=== PATIENT | female | born 1955 | race Caucasian/White ===

== ENCOUNTER 2020-03-21 18:45 | Emergency (ER) | payer MEDICARE, SELFPAY ==
--- NOTE | 2020-03-21 19:10 | PC.NURSE ---
in br to obtain ua spec.
[2020-03-21 19:14] VITALS: BP 142/83; PULSE 73; RESP 16; TEMP 36.9; O2SAT 99
--- NOTE | 2020-03-21 19:32 | ED.GENADULT ---
HPI - General Adult General Chief complaint: Abdominal Pain Stated complaint: left side pain Time Seen by Provider: 03/21/20 19:33 Source: patient and RN notes reviewed Mode of arrival: ambulatory Limitations: no limitations History of Present Illness HPI narrative: 64-year-old female presents with concern for acute left flank pain. Reports pain ranges from mild to an 8/10. Reports symptoms started this morning. She denies dysuria, frequency, urgency, hematuria. Reports mild nausea, decreased appetite. Denies abdominal pain, vomiting, diarrhea. Denies fever, body aches, chills, sweats. complaint: Flank pain Related Data Home Medications Medication Instructions Recorded Confirmed atenolol 03/21/20 levothyroxine 03/21/20 loperamide 03/21/20 lorazepam 03/21/20 ondansetron 03/21/20 trazodone 03/21/20 Allergies Allergy/AdvReac Type Severity Reaction Status Date / Time Cephalosporins Allergy Mild Rash Unverified 08/15/16 18:47 Sulfa (Sulfonamide Allergy Unknown Verified 02/12/19 12:26 Antibiotics) sulfanilamide Allergy Unknown Verified 10/09/12 15:04 Review of Systems Review of Systems: Narrative: CONSTITUTIONAL: Denies malaise, chills, sweats, or fever. CARDIOVASCULAR: Denies chest pain, palpitations RESPIRATORY: Denies cough or dyspnea. GASTROINTESTINAL: Denies abdominal pain, vomiting, diarrhea, bloody, or mucous stools.. Reports slight nausea, decreased appetite GENITOURINARY: Denies dysuria frequency, urgency, or hematuria. Reports left flank pain MUSCULOSKELETAL: Denies myalgia. All systems reviewed & are unremarkable except as noted in HPI and below PMFSH Family History Family History (Updated 02/12/19 @ 12:29 by DOCTOR UNKNOWN) Other Diabetes mellitus Family history of alcoholism Family history of cardiovascular disease Family history of osteoporosis Family history of thyroid disease Hypertension Social History Social History Smoking status: Never smoker Alcohol intake: current Comments At time of signature, agree with nursing past medical, surgical, social and family history. There is no relevant family history pertinent to the presenting complaint Exam Narrative: Exam Narrative: GENERAL: Well-appearing, well-nourished, and in no acute distress. HEAD: Normocephalic. EYES: PERRLA, conjunctivae clear. NECK: Supple. No lymphadenopathy CHEST: Clear to auscultation. No respiratory distress. HEART: Regular rate and rhythm. No murmur heard. Normal peripheral pulses. ABDOMEN: Soft, nontender upon palpation, nondistended, normal active bowel sounds, no palpable or pulsatile masses, no guarding. Left CVA tenderness SKIN: Warm, dry, no rash. NEURO: Alert and oriented x3. PSYCH: Normal mood and affect Course Course Emergency Course: Test with patient possible bacteria in urine, discussed with patient limited diagnostic capability at [facility] to diagnose kidney stone. Patient reports a history of kidney stones, and is worried she may have 1, patient asks to be transferred to the emergency room for further evaluation. Patient is aware of, understands and agrees to be transferred to emergency department. Patient agrees to proceed directly to the emergency department. Portions of this record may have been created with voice recognition software Vital Signs Vital signs: Vital Signs Temperature 98.5 F 03/21/20 19:14 Pulse Rate 73 03/21/20 19:14 Respiratory Rate 16 03/21/20 19:14 Blood Pressure 142/83 H 03/21/20 19:14 Pulse Oximetry 99 03/21/20 19:14 Temperature 98.5 F 03/21/20 19:14 Pulse Rate 73 03/21/20 19:14 Respiratory Rate 16 03/21/20 19:14 Blood Pressure 142/83 H 03/21/20 19:14 Pulse Oximetry 99 03/21/20 19:14 Reviewed. Patient has history of hypertension Transfer Transfered to: [facility] Transportation: Other (Private vehicle) Transfer rationale: Flank pain Accepting physician: David García Transfer comments: Patien
== END 2020-03-21 19:43 | disposition short-term general hospital (02) ==
PROVIDERS: Emergency Provider Nurse Practitioner; PCP Family Medicine
DX: R10.9 Unspecified abdominal pain (principal); I10 Essential (primary) hypertension; E03.9 Hypothyroidism, unspecified; G57.60 Lesion of plantar nerve, unspecified lower limb
CPT/HCPCS: 81003; 99213; G0463

== ENCOUNTER 2020-03-21 20:13 | Emergency (ER) | payer MEDICARE, SELFPAY ==
--- NOTE | ~2020-03-21 | CT_ITS ---
EXAMINATION: CT abdomen pelvis wo con DATE: 03/21/2020 21:24 INDICATION: Left flank pain. History of kidney stones. TECHNIQUE: Computed tomography (CT) of the abdomen and pelvis was performed without intravenous contr ast. Automated exposure control and iterative reconstruction technique were employed. Exam dose: 438 .35 mGy-cm total exam DLP. COMPARISON: None. FINDINGS: The lung bases are clear. Normal heart size. No pericardial or pleural effusion. Small sliding hiatal hernia. Status post cholecystectomy. No bile duct dilatation. No hepatic or splenic or pancreatic space-occup gabo mass lesion is evident on this limited noncontrast examination. No pancreatic duct dilatation. Normal morphology of the adrenal glands. No apparent renal space-occupying mass lesion is noted on this limited noncontrast examination. There is an approximately 4 mm nonobstructing lower pole left renal calculus. No other urinary tract calcu chasity or hydroureteronephrosis is evident. The uterus is unremarkable other than uterine fundic fibroid calcifications. There is an approximately 2.6 x 3.6 cm left adnexal cystic lesion with minimal mural calcification; c onsider pelvic sonographic correlation. There is diverticulosis of the left and right colon. There is pericolic fat stranding and thickening of the lateral conal and anterior pararenal fascia in the region of the distal descending colon consi stent with diverticulitis. No abscess is identified. No free intraperitoneal air is identified. No bowel obstruction or intraperitoneal free air. Probable appendectomy. There is atherosclerotic calcification but normal caliber of the abdominal aorta. No intraperitoneal or retroperitoneal or pelvic mass lesion or adenopathy or ascites is detected. There is a small fat-containing umbilical hernia. No suspicious osteolytic or osteoblastic lesions are noted. IMPRESSION: Diverticulitis of the distal descending colon Nonobstructing left renal calculus Status post cholecystectomy Status post appendectomy Small sliding hiatal hernia Reviewed, dictated and finalized at [facility] Reviewed, dictated and finalized at [facility].
[2020-03-21 20:18] VITALS: BP 149/88; PULSE 80; RESP 16; TEMP 36.4; O2SAT 98
--- NOTE | 2020-03-21 20:28 | ED.ABDPAIN ---
HPI - Abdominal Pain General Chief Complaint: Abdominal Pain Stated Complaint: left flank pain Time Seen by Provider: 03/21/20 20:21 History of Present Illness HPI narrative: Patient is a 64-year-old female who presents the ER with left-sided flank pain. Began this afternoon. Low back near the hip and is radiating around into the left lower quadrant of her abdomen. Feels similar to previous kidney stones. Pain is worse with palpation to that area. No rash. No itching or burning. No additional urinary symptoms or GI symptoms related to this. She is found no alleviating factors. Worsening factors include direct palpation and movements. Related Data Home Medications Medication Instructions Recorded Confirmed atenolol 03/21/20 levothyroxine 03/21/20 loperamide 03/21/20 lorazepam 03/21/20 ondansetron 03/21/20 trazodone 03/21/20 Allergies Allergy/AdvReac Type Severity Reaction Status Date / Time Cephalosporins Allergy Mild Rash Verified 03/21/20 20:22 Sulfa (Sulfonamide Allergy Unknown Rash Verified 03/21/20 20:22 Antibiotics) sulfanilamide Allergy Unknown Rash Verified 03/21/20 20:22 Review of Systems Review of Systems: All systems reviewed & are unremarkable except as noted in HPI and below Gastrointestinal: Gastrointestinal: Reports abdominal pain Genitourinary: Genitourinary: Denies hematuria, Denies nocturia, Denies dysuria and Reports flank pain Musculoskeletal: Musculoskeletal: Reports back pain PMFSH Past Medical History Medical History (Updated 03/21/20 @ 22:44 by Axel Ugalde MD) Anxiety Depression Hypothyroidism Kidney stone Surgical History Surgical History (Updated 03/21/20 @ 20:31 by Axel Ugalde MD) History of appendectomy History of cholecystectomy History of thyroidectomy History of tubal ligation Family History Family History (Updated 02/12/19 @ 12:29 by DOCTOR UNKNOWN) Other Diabetes mellitus Family history of alcoholism Family history of cardiovascular disease Family history of osteoporosis Family history of thyroid disease Hypertension Social History Social History Smoking status: Never smoker Alcohol intake: current Exam Narrative: Exam Narrative: GENERAL: Well-appearing, well-nourished, and in no acute distress. HEAD: Normocephalic, atraumatic. ENT: Mucous membranes moist. CHEST: Clear to auscultation. No respiratory distress. HEART: Regular rate and rhythm. Normal peripheral pulses. ABDOMEN: Soft, mildly tenderness over the left lower quadrant of the abdomen as well as left mid abdominal region in the midclavicular line. Nondistended, normal active bowel sounds. EXTREMITIES: Normal range of motion. No edema. SKIN: Warm, dry, no rash. No shingles type rash. NEURO: Alert and oriented x3. PSYCH: Normal mood and affect. Course Course Emergency Course: Informed of results. Zofran and tylenol here. D/c. Vital Signs Vital signs: Vital Signs Temperature 97.5 F L 03/21/20 20:18 Pulse Rate 80 03/21/20 20:18 Respiratory Rate 16 03/21/20 20:18 Blood Pressure 149/88 H 03/21/20 20:18 Pulse Oximetry 98 03/21/20 20:18 Temperature 97.5 F L 03/21/20 20:18 Pulse Rate 80 03/21/20 20:18 Respiratory Rate 16 03/21/20 20:18 Blood Pressure 149/88 H 03/21/20 20:18 Pulse Oximetry 98 03/21/20 20:18 MDM - Abdominal Pain Lab Data Result diagrams: 03/21/20 20:32 03/21/20 20:32 Labs: Lab Results 03/21/20 03/21/20 03/21/20 Range/Units 20:32 20:32 20:32 WBC 9.8 (4.5-10.0) K/mm3 RBC 4.98 (4.2-5.4) M/mm3 Hgb 15.3 H (12.0-15.0) g/dL Hct 45.1 (37.0-47.0) % MCV 90.6 (80-100) fl MCH 30.7 (26-34) pg MCHC 33.9 (32-36) g/dl RDW 13.2 (11.5-14.5) % Plt Count 266 (150-375) k/mm3 MPV 10.7 H (7.4-10.4) fl Immature Gran % (Auto) 0.2 (0-0.5) % Neut % (Auto) 68.3 (45.5-73.1) % Lymph % (Auto) 21.0 (18.3-44.2) %
[2020-03-21 20:48] LABS: Basophils Percent Auto 0.4 % (0.2-1.2); Eosinophils Absolute Auto 0.1 K/mm3 (0-0.3); Hematocrit 45.1 % (37.0-47.0); Hemoglobin 15.3 g/dL (12.0-15.0); Immature Granulocyte Absolute 0.02 K/mm3 (0.00-0.031); Immature Granulocyte Percent A 0.2 % (0-0.5); Lymphocytes Absolute Auto 2.06 K/mm3 (0.9-3.2); Mean Corpuscular HGB Conc 33.9 g/dl (32-36); Mean Corpuscular Hemoglobin 30.7 pg (26-34); Mean Corpuscular Volume 90.6 fl (80-100); Mean Platelet Volume 10.7 fl (7.4-10.4); Monocytes Absolute Auto 0.9 K/mm3 (0.1-0.6); Monocytes Percent Auto 9.1 % (2.6-8.5); Neutrophils Absolute Auto 6.7 K/mm3 (1.3-6.7); Neutrophils Percent Auto 68.3 % (45.5-73.1); Platelet Count Result 266 k/mm3 (150-375); Red Blood Count 4.98 M/mm3 (4.2-5.4); Red Cell Distribution Width 13.2 % (11.5-14.5); White Blood Count 9.8 K/mm3 (4.5-10.0)
[2020-03-21 20:54] LABS: Add Urine Microscopic? YES; Appearance Urine Clear (Clear); Bilirubin Urine Negative (Negative); Blood Urine 1+ (Negative); Color Urine Yellow (Yellow); Glucose Urine UA Negative (Negative); Ketones Urine Negative (Negative); Leukocyte Esterase Ur 3+ LEU/UL (Negative); Mucus Urine Few /lpf; Nitrate Urine Negative (Negative); Protein Urine Negative (Negative); Specific Grav Ur 1.019 (1.001-1.035); Squamous Epithelial Cell Urine Moderate /hpf (Few); Urobilinogen Urine Negative mg/dL (<2.0); WBC Urine 21-30 /hpf
[2020-03-21 21:04] LABS: Anion Gap 7 mmol/L (8-16); Blood Urea Nitrogen 14 mg/dL (7-17); Calcium 9.5 mg/dL (8.4-10.2); Carbon Dioxide 27 mmol/L (22-30); Chloride 103 mmol/L (98-107); Estimated CRCL calculation 80 ml/min; Estimated Glomerular Filt Rate > 60; Glucose 94 mg/dL (65-105); Potassium 3.7 mmol/L (3.4-5.0); Sodium 137 mmol/L (137-145)
[2020-03-21 22:41] VITALS: BP 119/81; PULSE 91; RESP 17; O2SAT 96
[2020-03-21] MEDS: ONDANSETRON INJ 4 MG/2 ML VIAL IV PUSH (22:46)
[2020-03-21 22:52] VITALS: BP 135/52; PULSE 119; RESP 19; O2SAT 97
--- NOTE | 2020-03-21 22:53 | PC.NURSE ---
pt appears more comfortable at this time. pt repositioned on to L side. pt remains hooked up to monitor, supplemental O2 removed. pt's son remains at bedside-updated on poc. will continue to monitor pt for baseline status changes.
== END 2020-03-21 23:03 | disposition home or self-care (01) ==
PROVIDERS: Emergency Provider Emergency Medicine; PCP Family Medicine
DX: K57.32 Diverticulitis of large intestine without perforation or abscess without bleeding (principal); E03.9 Hypothyroidism, unspecified; F41.9 Anxiety disorder, unspecified; F32.9 Major depressive disorder, single episode, unspecified; Z87.442 Personal history of urinary calculi; N20.0 Calculus of kidney; K44.9 Diaphragmatic hernia without obstruction or gangrene
CPT/HCPCS: 36415; 74176; 80048; 81001; 81003; 85025; 87077; 87086; 87088; 87186; 96374; 96375; 99284; J0131; J2405

== ENCOUNTER 2021-06-02 14:18 | Emergency (ER) | payer MEDICARE, SELFPAY ==
[2021-06-02 14:33] VITALS: BP 145/100; PULSE 73; RESP 20; TEMP 36.5; O2SAT 100
--- NOTE | 2021-06-02 14:59 | ED.URI ---
HPI - URI/Sore Throat General Chief Complaint: Upper Respiratory Infection Stated Complaint: sore throat/higginbotham Source: patient and RN notes reviewed Limitations: no limitations History of Present Illness HPI Narrative: The vaccinated patient a non-smoker/nondrinker, presents with a shorter couple day history of hoarseness, sore throat and associated chills. No fever measuredk, earache, loss of taste/smell, CP, vomiting/diarrhea, S OB. Symptoms are mild Related Data Home Medications Medication Instructions Recorded Confirmed atenolol 03/21/20 levothyroxine 03/21/20 lorazepam 03/21/20 trazodone 03/21/20 Allergies Allergy/AdvReac Type Severity Reaction Status Date / Time Cephalosporins Allergy Mild Rash Verified 06/02/21 14:50 Sulfa (Sulfonamide Allergy Unknown Rash Verified 06/02/21 14:50 Antibiotics) sulfanilamide Allergy Unknown Rash Verified 06/02/21 14:50 Review of Systems Review of Systems: The patient has been informed that they may have pre-hypertension or Hypertension based on a BP reading in the department. I recommend that the patient call the primary care provider listed on their discharge instructions or a physician of their choice this week to arrange follow up for further evaluation of possible pre-hypertension or Hypertension General/Constitutional: No weight loss,fever Eyes: N0: Redness,discharge Ears/Nose/Throat: No: Epistaxis,ear discharge Respiratory: Denies: Hemoptysis Gastrointestinal: No Vomiting, Bleeding-rectal Skin: No Lumps, eruption Neurologic: No Focal Weakness,Sz Hematologic: Denies: Petechiae/Purpura Psychiatric: No: Suicida ideationl All Other Systems: Reviewed and Negative [facility] Past Medical History Medical History (Updated 06/02/21 @ 17:27 by John Schwartz MD) Anxiety Depression Hypothyroidism Kidney stone Surgical History Surgical History (Updated 03/21/20 @ 20:31 by Axel Ugalde MD) History of appendectomy History of cholecystectomy History of thyroidectomy History of tubal ligation Family History Family History (Updated 02/12/19 @ 12:29 by DOCTOR UNKNOWN) Other Diabetes mellitus Family history of alcoholism Family history of cardiovascular disease Family history of osteoporosis Family history of thyroid disease Hypertension Social History Social History Smoking status: Never smoker Alcohol intake: current Comments At time of signature, agree with nursing past medical, surgical, social and family history. There is no relevant family history pertinent to the presenting complaint Exam Narrative: General Appearance: Well appearing, Well nourished EYE: PERRLA, Conjunctiva clear Ears: Auditory canal normal, TM normal Nose: Rhinorrhea, Mucousal erythema Mouth/Throat: MM moist, Uvula midline, Pharyngeal erythema Neck: Supple, No adenopathy Respiratory: No respiratory distress, Breath sounds equal, Clear to auscultation Cardiovascular: RRR, No JVD Musculoskeletal: Non tender, Normal strength Skin: Warm, Dry Neurological: A&O x3, CN II-XII intact Psychiatric: Normal mood, Normal affect Course Vital Signs Vital signs: Vital Signs Temperature 97.7 F 06/02/21 14:33 Pulse Rate 73 06/02/21 14:33 Respiratory Rate 20 06/02/21 14:33 Blood Pressure 145/100 H 06/02/21 14:33 Pulse Oximetry 100 06/02/21 14:33 Temperature 97.7 F 06/02/21 14:33 Pulse Rate 73 06/02/21 14:33 Respiratory Rate 20 06/02/21 14:33 Blood Pressure 145/100 H 06/02/21 14:33 Pulse Oximetry 100 06/02/21 14:33 MDM - URI/Sore Throat Lab Data Labs: Lab Results 06/02/21 Range/Units 14:40 POC SARS CoV-2 Ag Negative (Negative) Strep Screen Presumptive Negative *(Reference Range: Negative)* Discharge Plan Discharge Clinical Impression: Odynophagia Patient Disposition: Home, Self-Care Condition: Stable Ins
== END 2021-06-02 15:10 | disposition home or self-care (01) ==
PROVIDERS: Emergency Provider Emergency Medicine; PCP Family Medicine
DX: R13.10 Dysphagia, unspecified (principal); Z20.822 Contact with and (suspected) exposure to COVID-19; E03.9 Hypothyroidism, unspecified
CPT/HCPCS: 87081; 87426; 87880; 99213; C9803; G0463

== ENCOUNTER 2022-06-26 10:23 | Emergency (ER) | payer MEDICARE, SELFPAY ==
[2022-06-26 10:31] VITALS: BP 123/80; PULSE 59; RESP 18; TEMP 37; O2SAT 98
--- NOTE | 2022-06-26 10:52 | ED.GENADULT ---
HPI - General Adult General Chief complaint: Upper Respiratory Infection Stated complaint: Dizziness, Cough, Ears Irritation Source: patient Mode of arrival: ambulatory Limitations: no limitations History of Present Illness HPI narrative: Patient presents for evaluation of cough. She indicates her symptoms started in the middle of May. She went to an urgent care was given a prescription for azithromycin. She took the medication states her symptoms improved. Last she had recurrence of her symptoms. Cough is productive of clear sputum. Symptoms are worse at night when laying down. She denies shortness of breath per report some pain in her ribs only when coughing. She has some postnasal drainage and clear rhinorrhea. She states that her throat feels raw from coughing. She has experienced some chills but denies fever, or vomiting. She has chronic diarrhea with intake of coffee. She continues to have diarrhea but severity has not changed. no personal history of COVID. She has received COVID vaccination and boosters. She does not smoke. No additional complaints or concerns. Related Data Home Medications Medication Instructions Recorded Confirmed atenolol 50 mg tablet 50 mg DAILY 03/21/20 levothyroxine 112 mcg tablet 112 mcg DAILY 03/21/20 trazodone 50 mg tablet 50 mg HS 03/21/20 escitalopram oxalate 10 mg tablet 10 mg DAILY 06/26/22 06/26/22 Allergies Allergy/AdvReac Type Severity Reaction Status Date / Time Cephalosporins Allergy Mild Rash Verified 06/26/22 10:40 Sulfa (Sulfonamide Allergy Unknown Rash Verified 06/26/22 10:40 Antibiotics) sulfanilamide Allergy Unknown Rash Verified 06/26/22 10:40 Review of Systems Review of Systems: CONSTITUTIONAL: Reports chills.Denies fever or sweats. EYES: Denies visual changes, redness, or discharge. ENT:Reports rhinorrhea and sensation that her throat is raw from coughing CARDIOVASCULAR: Reports pleuritic chest pain. Denies palpitations, or edema. RESPIRATORY: reports productive cough of clear sputum. Denies shortness of breath. GASTROINTESTINAL: Reports chronic diarrhea, unchanged. Denies abdominal pain, nausea, vomiting GENITOURINARY: Denies dysuria or hematuria. SKIN: Denies rash or itching. MUSCULOSKELETAL: Denies back pain, joint pain, or myalgia. NEUROLOGIC: Reports feeling lightheaded when coughing. Denies headache, numbness, dizziness, or weakness. PSYCHIATRIC: Denies anxiety or depression. [facility] Past Medical History Medical History (Updated 06/26/22 @ 11:40 by TANIA Zapata, ) Anxiety Depression Hypertension Hypothyroidism Kidney stone Viral URI Surgical History Surgical History History of appendectomy History of cholecystectomy History of thyroidectomy History of tubal ligation Family History Family History Other Diabetes mellitus Family history of alcoholism Family history of cardiovascular disease Family history of osteoporosis Family history of thyroid disease Hypertension Social History Social History Smoking status: Never smoker Alcohol intake: current Living arrangements: with family Gender identity (if verbalized by the patient): Female Sexual Orientation (if Verbalized by the Patient): Straight or Heterosexual Spiritual care concerns: No Exam Narrative: GENERAL: Well-appearing, well-nourished, and in no acute distress. HEAD: Normocephalic, atraumatic. EYES: PERRLA and EOMI. ENT: Nares clear, no rhinorrhea or epistaxis. Mucous membranes moist. Oropharynx without tonsillar hypertrophy exudate or other lesions. Bilateral TMs pearly rae nonbulging NECK: Supple. No adenopathy or masses. No carotid bruits or JVD CHEST: Clear to auscultation. No respiratory distress. No wheezes rales or rhonchi HE
== END 2022-06-26 11:45 | disposition home or self-care (01) ==
PROVIDERS: Emergency Provider Nurse Practitioner; PCP Family Medicine
DX: B34.9 Viral infection, unspecified (principal); Z20.822 Contact with and (suspected) exposure to COVID-19; I10 Essential (primary) hypertension; E89.0 Postprocedural hypothyroidism; F41.9 Anxiety disorder, unspecified; F32.A Depression, unspecified
CPT/HCPCS: 87426; 87804; 99213; C9803; G0463

== ENCOUNTER 2022-10-07 18:46 | Emergency (ER) | payer MEDICARE, SELFPAY ==
--- NOTE | 2022-10-07 18:47 | ED.DENTAL ---
HPI - Dental/Oral General Chief complaint: Dental/Oral Stated complaint: Dental Pain Time Seen by Provider: 10/07/22 18:55 Source: patient, RN notes reviewed and old records reviewed Mode of arrival: ambulatory Limitations: no limitations History of Present Illness HPI Narrative: 67-year-old female presents to the [facility] with complaints of right lower dental pain. Has an appointment on Saturday for dental exam. States the discomfort has been going on for couple weeks, low worse over the last 3 or 4 days. Related Data Home Medications Medication Instructions Recorded Confirmed atenolol 50 mg tablet 50 mg DAILY 03/21/20 10/07/22 levothyroxine 112 mcg tablet 112 mcg DAILY 03/21/20 10/07/22 trazodone 50 mg tablet 50 mg HS 03/21/20 10/07/22 escitalopram oxalate 10 mg tablet 10 mg DAILY 06/26/22 10/07/22 Allergies Allergy/AdvReac Type Severity Reaction Status Date / Time Cephalosporins Allergy Mild Rash Verified 10/07/22 18:51 Sulfa (Sulfonamide Allergy Unknown Rash Verified 10/07/22 18:51 Antibiotics) sulfanilamide Allergy Unknown Rash Verified 10/07/22 18:51 Review of Systems Review of Systems: All systems reviewed & are unremarkable except as noted in HPI and below Constitutional: Constitutional: Reports no additional constitutional complaints Eyes: Eyes: Reports no additional eye complaints ENT: Reports as per HPI and Reports dental pain (Right lower) Cardiovascular: Cardiovascular: Reports no additional cardiovascular complaints, Denies chest pain and Denies dyspnea Respiratory: Respiratory: Reports no additional respiratory complaints, Denies chest congestion, Denies cough and Denies dyspnea Gastrointestinal: Gastrointestinal: Reports no additional gastrointestinal complaints, Denies abdominal pain, Denies nausea and Denies vomiting Musculoskeletal: Musculoskeletal: Reports no additional musculoskeletal complaints Integumentary/Breasts: Skin/Breast: Reports system reviewed and no additional complaints, except as docu Neurologic: Reports system reviewed and no additional complaints, except as documented Psychiatric: Psychiatric: Reports no additional psychiatric complaints Allergic/Immunologic: Allergic/Immunologic: Reports no additional allergic/immunologic complaints PMFSH Past Medical History Medical History Anxiety Depression Hypertension Hypothyroidism Kidney stone Viral URI Surgical History Surgical History History of appendectomy History of cholecystectomy History of thyroidectomy History of tubal ligation Family History Family History Other Diabetes mellitus Family history of alcoholism Family history of cardiovascular disease Family history of osteoporosis Family history of thyroid disease Hypertension Social History Social History Smoking status: Never smoker Alcohol intake: current Living arrangements: with family Gender identity (if verbalized by the patient): Female Sexual Orientation (if Verbalized by the Patient): Straight or Heterosexual Spiritual care concerns: No Comments At the time of my signature, I reviewed and agree with the nursing past medical, surgical, social, and family history. There is no relevant family history pertinent to the patient complaint. Exam Const: General: cooperative, healthy appearing, comfortable, no acute distress, well developed, alert and well nourished Nutritional Appearance: well nourished Orientation/consciousness: patient oriented x3 Limitations: no limitations HENMT: Head: normal to inspection Ears: hearing grossly normal bilaterally and external ears normal Face/Nose/Sinus: Normal external nose present, Normal nares present, Normal nasal mucous membranes and turbinates present and normal faci
[2022-10-07 18:54] VITALS: BP 127/82; PULSE 53; RESP 20; TEMP 36.6; O2SAT 100
== END 2022-10-07 19:08 | disposition home or self-care (01) ==
PROVIDERS: Emergency Provider Nurse Practitioner; PCP Family Medicine
DX: K02.9 Dental caries, unspecified (principal); K04.7 Periapical abscess without sinus; I10 Essential (primary) hypertension; E89.0 Postprocedural hypothyroidism
CPT/HCPCS: 99213; G0463

== ENCOUNTER 2023-03-07 10:15 | Emergency (ER) | payer MEDICARE, SELFPAY ==
--- NOTE | ~2023-03-07 | XR_ITS ---
EXAMINATION: XR foot RT min 3V DATE: 03/07/2023 10:37 INDICATION: Right foot pain, initial encounter TECHNIQUE: Dorsoplantar, lateral, and 2 oblique views of the right foot were obtained. COMPARISON: None. FINDINGS: There is an acute, traumatic, oblique neck fracture of the first proximal phalanx. One plan e of the fracture appears to extend to the interphalangeal joint. There is soft tissue swelling of th e first toe. There is mild osteoarthritis at the first metatarsophalangeal joint and in multiple inte rphalangeal joints. IMPRESSION: 1. Acute, possibly intra-articular fracture of the first proximal phalanx. Reviewed, dictated and finalized at location L.
--- NOTE | 2023-03-07 10:17 | ED.GENADULT ---
HPI - General Adult General Chief complaint: Extremity Injury, Lower Stated complaint: Right Foot Pain Time Seen by Provider: 03/07/23 10:27 Source: patient, RN notes reviewed and old records reviewed Mode of arrival: ambulatory Limitations: no limitations History of Present Illness HPI narrative: 67-year-old female presents to the [facility] with right foot pain. Injured it 2 weeks ago, unsure of exact injury. Denies hitting head or loss of consciousness. Denies seeking treatment at that time. Stated that her toes 1,2,3 were bruised, swollen and painful. Has been taken ibuprofen. States the base of the great toe, 2nd toe and 3rd toe are still having discomfort. Bruising is no longer present. Tenderness at the base of the 1st toe Onset (ago): week(s) (2) Related Data Home Medications Medication Instructions Recorded Confirmed atenolol 50 mg tablet 50 mg DAILY 03/21/20 10/07/22 levothyroxine 112 mcg tablet 112 mcg DAILY 03/21/20 10/07/22 trazodone 50 mg tablet 50 mg HS 03/21/20 10/07/22 escitalopram oxalate 10 mg tablet 10 mg DAILY 06/26/22 10/07/22 Allergies Allergy/AdvReac Type Severity Reaction Status Date / Time Cephalosporins Allergy Mild Rash Verified 10/07/22 18:51 Sulfa (Sulfonamide Allergy Unknown Rash Verified 10/07/22 18:51 Antibiotics) sulfanilamide Allergy Unknown Rash Verified 10/07/22 18:51 Review of Systems Review of Systems: All systems reviewed & are unremarkable except as noted in HPI and below Constitutional: Constitutional: Reports no additional constitutional complaints Eyes: Eyes: Reports no additional eye complaints ENT: Reports system reviewed and no additional complaints, except as documented Cardiovascular: Cardiovascular: Reports no additional cardiovascular complaints, Denies chest pain and Denies dyspnea Respiratory: Respiratory: Reports no additional respiratory complaints, Denies chest congestion, Denies cough and Denies dyspnea Gastrointestinal: Gastrointestinal: Reports no additional gastrointestinal complaints, Denies abdominal pain, Denies nausea and Denies vomiting Musculoskeletal: Musculoskeletal: Reports as per HPI, Reports arthralgias and Reports joint swelling Integumentary/Breasts: Skin/Breast: Reports system reviewed and no additional complaints, except as docu Neurologic: Reports system reviewed and no additional complaints, except as documented Psychiatric: Psychiatric: Reports no additional psychiatric complaints Allergic/Immunologic: Allergic/Immunologic: Reports no additional allergic/immunologic complaints PMFSH Past Medical History Medical History Anxiety Depression Hypertension Hypothyroidism Kidney stone Viral URI Surgical History Surgical History History of appendectomy History of cholecystectomy History of thyroidectomy History of tubal ligation Family History Family History Other Diabetes mellitus Family history of alcoholism Family history of cardiovascular disease Family history of osteoporosis Family history of thyroid disease Hypertension Social History Social History Smoking status: Never smoker Alcohol intake: current Living arrangements: with family Gender identity (if verbalized by the patient): Female Sexual Orientation (if Verbalized by the Patient): Straight or Heterosexual Spiritual care concerns: No Comments At the time of my signature, I reviewed and agree with the nursing past medical, surgical, social, and family history. There is no relevant family history pertinent to the patient complaint. Exam Const: General: cooperative, healthy appearing, comfortable, no acute distress, well developed, alert and well nourished Nutritional Appearance: well nourished Orientation/consciousn
[2023-03-07 10:23] VITALS: BP 112/91; PULSE 53; RESP 16; TEMP 36.2; O2SAT 95
== END 2023-03-07 11:24 | disposition home or self-care (01) ==
PROVIDERS: Emergency Provider Nurse Practitioner; PCP Family Medicine
DX: S92.401A Displaced unspecified fracture of right great toe, initial encounter for closed fracture (principal); X58.XXXA Exposure to other specified factors, initial encounter; I10 Essential (primary) hypertension; E03.9 Hypothyroidism, unspecified; F41.9 Anxiety disorder, unspecified; F32.A Depression, unspecified
CPT/HCPCS: 73630; 99214; G0463

== ENCOUNTER 2023-10-05 16:05 | Emergency (ER) | payer MEDICARE, SELFPAY ==
[2023-10-05 16:14] VITALS: BP 123/67; PULSE 60; RESP 14; TEMP 36.9; O2SAT 98
--- NOTE | 2023-10-05 16:28 | ED.EAR ---
HPI - Ear Problem General Chief complaint: Ear Stated complaint: Ears Irritation Time Seen by Provider: 10/05/23 16:20 Source: patient and RN notes reviewed Mode of arrival: ambulatory Limitations: no limitations History of Present Illness HPI Narrative: Patient presents today complaining of bilateral ear pressure and muffling as well as increased tinnitus. Reports her symptoms have of started headache and exacerbated her chronic congestion and rhinorrhea. She has tried some [id number] medication recommended by the pharmacist which has not provided any relief. Patient is supposed to fly in an airplane in approximately 2 weeks and is concerned about her current symptoms worsening in flying Related Data Home Medications Medication Instructions Recorded Confirmed atenolol 50 mg tablet 50 mg DAILY 03/21/20 10/05/23 levothyroxine 112 mcg tablet 112 mcg DAILY 03/21/20 10/05/23 trazodone 50 mg tablet 50 mg PO HS 03/21/20 10/05/23 escitalopram oxalate 10 mg tablet 10 mg DAILY 06/26/22 10/05/23 dupilumab 300 mg/2 mL subcutaneous 300 mg subcut WEEKLY 10/05/23 10/05/23 pen injector (Dupixent) Allergies Allergy/AdvReac Type Severity Reaction Status Date / Time Cephalosporins Allergy Mild Rash Verified 10/05/23 16:08 Sulfa (Sulfonamide Allergy Unknown Rash Verified 10/05/23 16:08 Antibiotics) sulfanilamide Allergy Unknown Rash Verified 10/05/23 16:08 Review of Systems Review of Systems: CONSTITUTIONAL: Denies body aches, fever, chills, or sweats. EYES: Denies visual changes, redness, or discharge. ENT: Denies sore throat, or otalgia.+ congestion, rhinorrhea, bilateral ear pressure and muffling, tinnitus CARDIOVASCULAR: Denies chest pain, palpitations, or edema. RESPIRATORY: Denies cough or dyspnea. GASTROINTESTINAL: Denies abdominal pain, nausea, vomiting, or diarrhea. GENITOURINARY: Denies dysuria or hematuria. SKIN: Denies rash, itching, or wounds. MUSCULOSKELETAL: Denies back pain, joint pain, or myalgia. NEUROLOGIC: Denies headache, numbness, tingling, or weakness. PSYCH: Denies depression or anxiety. [facility] Past Medical History Medical History Anxiety Depression Hypertension Hypothyroidism Kidney stone Viral URI Surgical History Surgical History History of appendectomy History of cholecystectomy History of thyroidectomy History of tubal ligation Family History Family History Other Diabetes mellitus Family history of alcoholism Family history of cardiovascular disease Family history of osteoporosis Family history of thyroid disease Hypertension Social History Social History Smoking status: Never smoker Alcohol intake: current Living arrangements: with family Gender identity (if verbalized by the patient): Female Sexual Orientation (if Verbalized by the Patient): Straight or Heterosexual Spiritual care concerns: No Comments At time of signature, I have reviewed and agree with nursing past medical, surgical, social and family history unless otherwise noted. Please see nursing chart for further information. There is no relevant family history pertinent to the presenting complaint Exam Narrative: GENERAL: Well-appearing, well-nourished, and in no acute distress. HEAD: Normocephalic, atraumatic. EYES: EOMI. No redness or drainage. Conjunctivae normal. ENT: Mucous membranes pink and moist. Nares clear. No rhinorrhea. TMs normal bilaterally with mild to moderate middle ear effusions without evidence of bacterial infection. NECK: Normal AROM. Supple. No lymphadenopathy. CHEST: No respiratory distress. EXTREMITIES: Normal range of motion. No edema. SKIN: Warm, dry, no rash. Capillary refill normal. Normal skin turgor. NEURO:
== END 2023-10-05 16:35 | disposition home or self-care (01) ==
PROVIDERS: Emergency Provider Nurse Practitioner; PCP Family Medicine
DX: H65.03 Acute serous otitis media, bilateral (principal); I10 Essential (primary) hypertension; E03.9 Hypothyroidism, unspecified; F41.9 Anxiety disorder, unspecified; F32.A Depression, unspecified
CPT/HCPCS: 99213; G0463

== ENCOUNTER 2024-01-21 16:05 | Emergency (ER) | payer MEDICARE, SELFPAY ==
[2024-01-21 16:18] VITALS: BP 135/82; PULSE 63; RESP 16; TEMP 37.3; O2SAT 99
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
== END 2024-01-21 16:40 | disposition home or self-care (01) ==
PROVIDERS: Emergency Provider Nurse Practitioner; PCP Family Medicine
DX: M54.2 Cervicalgia (principal); I10 Essential (primary) hypertension; E03.9 Hypothyroidism, unspecified; F41.9 Anxiety disorder, unspecified; F32.A Depression, unspecified
CPT/HCPCS: 99213; G0463

== ENCOUNTER 2024-09-10 18:07 | Emergency (ER) | payer MEDICARE, SELFPAY ==
--- NOTE | 2024-09-10 18:12 | ED_ITS ---
HPI - URI/Sore Throat General Chief Complaint: Upper Respiratory Infection Stated Complaint: Cough/Ears Irritation Time Seen by Provider: 09/10/24 18:08 Source: patient Mode of arrival: ambulatory Limitations: no limitations History of Present Illness HPI Narrative: Patient is a 77-year-old female that presents with 3 days of congestion, cough and left ear irritation. Patient has dry cough. Tested negative for COVID flu at [facility] yesterday. Denies any fever, chills, nausea, vomiting, diarrhea. Related Data Home Medications ?Medication ?Instructions ?Recorded ?Confirmed ?Last Taken ?Type atenolol 50 mg tablet 100 mg DAILY 03/21/20 10/05/23 06/02/21 History trazodone 50 mg tablet 50 mg PO HS 03/21/20 10/05/23 06/02/21 History dupilumab 300 mg/2 mL subcutaneous 300 mg subcut WEEKLY 10/05/23 10/05/23 Unknown History pen injector (Dupixent) escitalopram oxalate 20 mg tablet 20 mg PO DAILY 01/21/24 01/21/24 Unknown History levothyroxine 125 mcg tablet 125 mcg PO DAILY 01/21/24 01/21/24 Unknown History venlafaxine 75 mg capsule,extended 75 mg PO DAILY 01/21/24 01/21/24 Unknown History release 24 hr Allergies Allergy/AdvReac Type Severity Reaction Status Date / Time Cephalosporins Allergy Mild Rash Verified 09/10/24 18:09 Sulfa (Sulfonamide Allergy Unknown Rash Verified 09/10/24 18:09 Antibiotics) sulfanilamide Allergy Unknown Rash Verified 09/10/24 18:09 Review of Systems Review of Systems: All systems reviewed & are unremarkable except as noted in HPI and below Constitutional: Constitutional: Denies chills, Denies fatigue, Denies fever(s), Denies headache(s), Denies malaise and Denies weakness Eyes: Eyes: Denies blurry vision, Denies itchy eyes and Denies loss of vision ENT: Reports otalgia, Denies headache(s), Reports nasal congestion, Denies sinus pain and Denies sore throat Cardiovascular: Cardiovascular: Denies chest pain, Denies irregular heart rhythm and Denies dyspnea Respiratory: Respiratory: Reports cough and Denies dyspnea Gastrointestinal: Gastrointestinal: Denies abdominal pain, Denies diarrhea, Denies nausea and Denies vomiting Musculoskeletal: Musculoskeletal: Denies back pain, Denies myalgias and Denies arthralgias Integumentary/Breasts: Skin/Breast: Denies pruritus and Denies rash Neurologic: Denies headache(s), Denies loss of vision and Denies weakness Psychiatric: Psychiatric: Reports no additional psychiatric complaints Endocrine: Endocrine: Denies fatigue Allergic/Immunologic: Allergic/Immunologic: Denies itchy eyes PMFSH Past Medical History Medical History Viral URI Hypertension Hypothyroidism Anxiety Depression Kidney stone Surgical History Surgical History History of tubal ligation History of thyroidectomy History of appendectomy History of cholecystectomy Family History Family History Other Diabetes mellitus Family history of alcoholism Family history of cardiovascular disease Family history of osteoporosis Family history of thyroid disease Hypertension Social History Social History Smoking status: Never smoker Alcohol intake: current Living arrangements: with family Gender identity (if verbalized by the patient): Female Sexual Orientation (if Verbalized by the Patient): Straight or Heterosexual Spiritual care concerns: No Comments At time of signature, agree with nursing past medical, surgical, social and family history. There is no relevant family history pertinent to the presenting complaint. Exam Const: General: cooperative, healthy appearing, comfortable, no acute distress and well nourished Nutritional Appearance: well nourished Orientation/consciousness: patient oriented x3 Limitations: no limitations HENMT: Head: normal to inspection, normocephalic and atraumatic Ears: hearing grossly normal bilaterally, external ears normal, TM's normal bilaterally, EAC's normal and no periauricular adenopathy Face/Nose/Sinus: Normal external nose present, Abnormal mucous membranes and turbinates present erythematous bilateral and diffuse, normal facial exam, sinuses nontender and face symmetric Face and sinus: normal facial exam, sinuses nontender and face symmetric Mouth: Yes Normal oral and palatal mucosa present, Yes lip normal, Yes tongue normal, Yes Normal salivary glands and ducts present, Yes oropharynx normal and Yes moist mucous membranes Teeth and gingiva: dentition normal Throat: posterior oropharynx normal, tonsils normal, uvula midline and postnasal drainage Eyes: General: appearance normal, both eyes and all related structures Alignment and Position: alignment normal and position normal Periorbital: per iorbital findings normal Eyelids: eyelids normal Pupils: Equal, round and reactive pupils present Neck: Neck: normal visual inspection, full ROM, no lymphadenopathy and supple Chest: Chest palpation & inspection: normal inspection of the chest and normal palpation of entire chest wall Resp: Effort & Inspection: normal respiratory effort, able to speak in complete sentences and Actively coughing dry Auscultation: clear to auscultation bilaterally, no crackles, no rales, no rhonchi and no wheezes Cardio: Rate: regular rate Rhythm: regular rhythm Heart sounds: S1 normal heart sound present and S2 normal heart sound present GI: Inspection: normal to inspection Skin: General skin exam: normal color and no rashes or lesions noted Neuro: General: patient oriented x3 and moves all extremities Cranial nerves: Yes Equal, round and reactive pupils present Speech: normal speech Gait exam (Neuro): Normal gait present Extrem: General: normal to inspection, full ROM and no edema Psych: Appearance: grossly normal and well kempt Mental Status: mental status grossly normal Speech and movement: Normal speech and movement present Affect: normal affect Attitude: cooperative Thought process: Normal thought process present Course Course Emergency Course: Discharge instructions reviewed with patient, as well as provided in writing per nursing staff. The instructions also include specific and strict return/GO TO THE ER as well as f/u information. All questions have been answered, and the patient deny any further questions with discharge and discharge plan. Portions of this record may have been created with voice recognition software Level of Care: Express Care Visit Vital Signs Vital signs: Vital Signs Temperature 36.9 C 09/10/24 18: Pulse Rate 65 09/10/24 18:27 Respiratory Rate 15 09/10/24 18: Blood Pressure 137/70 09/10/24 18: Pulse Oximetry 99 09/10/24 18:27 Oxygen Delivery Room Air 09/10/24 18: Temperature 36.9 C 09/10/24 18: Pulse Rate 65 09/10/24 18:27 Respiratory Rate 15 09/10/24 18:27 Blood Pressure 137/70 09/10/24 18:27 Pulse Oximetry 99 09/10/24 18:27 Oxygen Delivery Room Air 09/10/24 18:27 Reviewed MDM - URI/Sore Throat MDM Narrative Medical decision making narrative: Pt well hydrated appearing, in no respiratory distress, hemodynamically stable. Recommend supportive care. The patient is stable at time of discharge the clinical impression was discussed and the patient was given the opportunity to ask questions, which were addressed as completely as possible given the information available at present. Anticipatory guidance and return to care precautions were discussed and the importance of primary care follow-up was stressed and encouraged. The patient voiced understanding of the plan, indications to return, and the need for follow-up. Differential diagnosis considered: Bronchitis, Watson virus, strep pharyngitis, allergic rhinitis, upper respiratory tract infection, sinusitis, rhinosinusitis, nasopharyngitis. viral pharyngitis, otitis media, otitis externa, otitis effusion, foreign body, cerumen impaction, viral syndrome, and influenza.? Exam findings show no acute concerns or changes; patient is non-toxic appearing and is in no distress.? Patient is appropriate for outpatient treatment and follow- up.? Medical Records Attestation: I reviewed the patient's medical records. Discharge Plan Discharge Clinical Impression: Bronchitis Patient Disposition: Home, Self-Care Condition: Stable Instructions: Acute Bronchitis (ED) Additional Instructions: Use Tessalon Perles as needed for cough. Use inhaler with spacer as needed. Other symptomatic treatments include: -Alternate Tylenol and Motrin per package directions for fever or pain: Tylenol 650-1000mg by mouth every 4-6 hours. Do not exceed 4000mg in 24 hours. Advil (Ibuprofen) 600 mg by mouth every 6 hours. Do not exceed 2400mg in 24 hours. 8 AM: Tylenol 11 AM: Ibuprofen 2 PM: Tylenol 5 PM: Ibuprofen 8 PM: Tylenol 11 PM: Ibuprofen 2 AM: Tylenol 5 AM: Ibuprofen -Antihistamine medication such as Benadryl at night and Zyrtec/Claritin/Jackie during the day can help improve symptoms. -Use Flonase twice a day for 5 days then daily to help reduce the inflammation and dry up your sinuses. -You can also use Sudafed or Mucinex. Be sure to drink plenty of water with these medications at least 8 ounces with every dose and it is important to drink 8 to 10 glasses of water per day. Water is a natural decongestant -Eat and drink things that are easy to swallow, like tea or soup, or popsicles. -Oral rinses such as: Salt water gargles and/or may use topical anesthetic (eg. Chloraseptic spray) or lozenges to relieve dryness or throat pain). -Frequent hand washing or hand picking crew supervisor is one of the best ways to prevent spread of infection. -Using a vaporizer or humidifier at night will also help thin secretions and help with coughing up phlegm. Call your Primary Care Doctor and make a follow-up appointment in 3 days. If your cough worsens, you develop a fever greater than 103, you develop shaking chills, a fast heartbeat, trouble breathing and/or feel you are are breathing much faster than usual, call your Primary Care Doctor or go to the ER. Patient Language: Ghanaian Prescriptions: New benzonatate 100 mg capsule 100 mg PO BID PRN (Reason: cough) Qty: 14 0RF albuterol sulfate 90 mcg/actuation HFA aerosol inhaler 2 puff inhalation QID PRN (Reason: shortness of breath or wheezing) Qty: 6.7 0RF (DME) Aerochamber MV Spacer See Rx Instructions .Route Qty: 1 0RF Rx Instructions: As directed No Action Dupixent Pen 300 mg/2 mL pen injector 300 mg SUBCUT WEEKLY prednisone 10 mg tablet 30 mg PO DAILY 5 Days Qty: 15 0RF trazodone 50 mg tablet 50 mg PO HS atenolol 50 mg tablet 100 mg DAILY venlafaxine 75 mg capsule,extended release 24hr 75 mg PO DAILY levothyroxine 125 mcg tablet 125 mcg PO DAILY escitalopram oxalate 20 mg tablet 20 mg PO DAILY ketorolac 10 mg tablet 10 mg PO Q6H PRN (Reason: pain) 5 Days Qty: 20 0RF diazepam [Valium] 5 mg tablet 5 mg PO BID PRN (Reason: muscle spasm) Qty: 10 0RF Follow-up/Referrals: Elaine,Mark Adams MD [Primary Care Provider] - 3 Days Time of Disposition: 18:59
[2024-09-10 18:27] VITALS: BP 137/70; PULSE 65; RESP 15; TEMP 36.9; O2SAT 99
== END 2024-09-10 19:10 | disposition home or self-care (01) ==
PROVIDERS: Emergency Provider Nurse Practitioner Family; PCP Family Medicine
DX: J40 Bronchitis, not specified as acute or chronic (principal); I10 Essential (primary) hypertension; E03.9 Hypothyroidism, unspecified; F41.9 Anxiety disorder, unspecified; F32.A Depression, unspecified
CPT/HCPCS: 99213; G0463

== ENCOUNTER 2025-04-26 17:02 | Emergency (ER) | payer MEDICARE, SELFPAY ==
--- NOTE | ~2025-04-26 | XR_ITS ---
EXAMINATION: XR shoulder LT min 2V, 04/26/2025 17:51 CDT HISTORY: LT shoulder Pain with movement, fall 12 days ago COMPARISON: No comparisons available. Findings: No acute fracture or malalignment. No significant degenerative changes. Soft tissues unremarkable. Impression: No acute fracture or malalignment. Reviewed, dictated and finalized at location P. Impression: No acute fracture or malalignment.
--- NOTE | ~2025-04-26 | XR_ITS ---
EXAMINATION: XR wrist RT min 3V, 04/26/2025 17:51 CDT HISTORY: RT wrist pain, ulnar aspect, fall 12 days ago COMPARISON: No comparisons available. Findings: No acute fracture or malalignment. No significant degenerative changes. Soft tissues unremarkable. Impression: No acute fracture or malalignment. Reviewed, dictated and finalized at location P. Impression: No acute fracture or malalignment.
[2025-04-26 17:20] VITALS: BP 125/88; PULSE 65; RESP 16; TEMP 36.4; O2SAT 99
--- NOTE | 2025-04-26 17:41 | ED.GENADULT ---
HPI - General Adult General Chief complaint: Extremity Injury, Upper Stated complaint: Fall 12 days ago Time Seen by Provider: 04/26/25 17:42 Source: patient, RN notes reviewed and old records reviewed Mode of arrival: ambulatory Limitations: no limitations History of Present Illness HPI narrative: 69-year-old female presents to [facility] with complaints of decreased range of motion of the left shoulder and right wrist tenderness along the ulnar aspect. Patient states that she was sitting in a chair went to reach for something and the chair fell out from under her. Has been taken Tylenol and ibuprofen. Occurred 12 days ago on April 15. Continues to have discomfort to the right wrist ulnar aspect and decreased range of motion to the left shoulder, all other injuries were feeling better. Onset (ago): day(s) () Related Data Home Medications ?Medication ?Instructions ?Recorded ?Confirmed ?Last Taken ?Type atenolol 50 mg tablet 100 mg DAILY 03/21/20 10/05/23 06/02/21 History trazodone 50 mg tablet 50 mg PO HS 03/21/20 10/05/23 06/02/21 History dupilumab 300 mg/2 mL subcutaneous 300 mg subcut WEEKLY 10/05/23 10/05/23 Unknown History pen injector (Dupixent) escitalopram oxalate 20 mg tablet 20 mg PO DAILY 01/21/24 01/21/24 Unknown History levothyroxine 125 mcg tablet 125 mcg PO DAILY 01/21/24 01/21/24 Unknown History venlafaxine 75 mg capsule,extended 75 mg PO DAILY 01/21/24 01/21/24 Unknown History release 24 hr Allergies Allergy/AdvReac Type Severity Reaction Status Date / Time amoxicillin (From Augmentin) Allergy Intermediate Rash Verified 09/10/24 19:22 clavulanic acid (From Allergy Intermediate Rash Verified 09/10/24 19:22 Augmentin) Cephalosporins Allergy Mild Rash Verified 09/10/24 18:09 Sulfa (Sulfonamide Allergy Unknown Rash Verified 09/10/24 18:09 Antibiotics) sulfanilamide Allergy Unknown Rash Verified 09/10/24 18:09 Review of Systems Review of Systems: All systems reviewed & are unremarkable except as noted in HPI and below Constitutional: Constitutional: Reports no additional constitutional complaints ENT: Reports system reviewed and no additional complaints, except as documented Cardiovascular: Cardiovascular: Reports no additional cardiovascular complaints, Denies chest pain and Denies dyspnea Respiratory: Respiratory: Reports no additional respiratory complaints, Denies chest congestion, Denies cough and Denies dyspnea Musculoskeletal: Musculoskeletal: Reports as per HPI Integumentary/Breasts: Skin/Breast: Reports system reviewed and no additional complaints, except as docu PMFSH Past Medical History Medical History Viral URI Hypertension Hypothyroidism Anxiety Depression Kidney stone Surgical History Surgical History History of tubal ligation History of thyroidectomy History of appendectomy History of cholecystectomy Family History Family History Other Diabetes mellitus Family history of alcoholism Family history of cardiovascular disease Family history of osteoporosis Family history of thyroid disease Hypertension Social History Social History Smoking status: Never smoker Alcohol intake: current Living arrangements: with family Gender identity (if verbalized by the patient): Female Sexual Orientation (if Verbalized by the Patient): Straight or Heterosexual Spiritual care concerns: No Comments At the time of my signature, I reviewed and agree with the nursing past medical, surgical, social, and family history. There is no relevant family history pertinent to the patient complaint. Exam Const: General: cooperative, healthy appearing, comfortable, no acute distress, well developed, alert and well nourished Nutritional Appearance: well nourished Orientation/consciousness: patient oriented x3 Limitations: no limitations HENMT: Head: normal to inspection Mouth: Yes Normal oral and palatal mucosa present, Yes lip normal, Yes tongue normal and Yes moist mucous membranes Eyes: General: appearance normal, both eyes and all related structures Alignment and Position: alignment normal Neck: Neck: normal visual inspection, full ROM, no lymphadenopathy and no meningeal signs Chest: Chest palpation & inspection: normal inspection of the chest Resp: Effort & Inspection: normal respiratory effort and able to speak in complete sentences Auscultation: clear to auscultation bilaterally, no crackles, no rales, no rhonchi and no wheezes Cardio: Rate: regular rate Skin: General skin exam: normal color and no rashes or lesions noted Neuro: General: patient oriented x3, gait normal, moves all extremities and no meningeal signs Cognition (Neuro): normal cognition Speech: normal speech Gait exam (Neuro): Normal gait present Extrem: General: normal to inspection, full ROM, capillary refill normal and normal gait Right upper extremity: wrist tenderness of the distal ulna and normal ROM Left upper extremity: shoulder/upper arm abnormal ROM pain with active ROM and pain with passive ROM; no tenderness and no swelling Psych: Appearance: grossly normal and well kempt Mental Status: mental status grossly normal Speech and movement: Normal speech and movement present and Clear speech present Affect: normal affect Attitude: cooperative Course Course Level of Care: Express Care Visit Vital Signs Vital signs: Vital Signs Temperature 97.6 F 04/26/25 17:20 Pulse Rate 65 04/26/25 17:20 Respiratory Rate 16 04/26/25 17:20 Blood Pressure 125/88 04/26/25 17:20 Pulse Oximetry 99 04/26/25 17:20 Oxygen Delivery Room Air 04/26/25 17:20 Temperature 97.6 F 04/26/25 17:20 Pulse Rate 65 04/26/25 17:20 Respiratory Rate 16 04/26/25 17:20 Blood Pressure 125/88 04/26/25 17:20 Pulse Oximetry 99 04/26/25 17:20 Oxygen Delivery Room Air 04/26/25 17:20 Reviewed Medical Decision Making MDM Narrative Medical decision making narrative: Patient sitting comfortably in exam room. Patient is nontoxic. Vitals are stable. Patient 12 days post fall. Continued right wrist pain and left shoulder decreased range of motion. X-ray showed no acute findings. Patient is appropriate to follow-up with primary care provider and orthopedic. Discharge instructions reviewed with patient, as well as provided in writing per nursing staff. The instructions also include specific and strict return/GO TO THE ER as well as f/u information. All questions have been answered, and the patient deny any further questions with discharge and discharge plan. Some parts of this dictation were generated by voice recognition software and may contain typographical and/or grammatical inaccuracies. Differential Diagnosis Differential Diagnosis: Shoulder sprain, strain, fracture Wrist sprain, strain, fracture Medical Records Medical records reviewed: Yes I reviewed the external patient's medical records. Vital Signs Vital Signs: Vital Signs Temperature 97.6 F 04/26/25 17:20 Pulse Rate 65 04/26/25 17:20 Respiratory Rate 16 04/26/25 17:20 Blood Pressure 125/88 04/26/25 17:20 Pulse Oximetry 99 04/26/25 17:20 Oxygen Delivery Room Air 04/26/25 17:20 Temperature 97.6 F 04/26/25 17:20 Pulse Rate 65 04/26/25 17:20 Respiratory Rate 16 04/26/25 17:20 Blood Pressure 125/88 04/26/25 17:20 Pulse Oximetry 99 04/26/25 17:20 Oxygen Delivery Room Air 04/26/25 17:20 Reviewed Lab Data Lab results reviewed: Yes I reviewed the patient's lab results. Labs: Reviewed Imaging Data Radiologist's impression: EXAMINATION: XR shoulder LT min 2V, 04/26/2025 17:51 CDT HISTORY: LT shoulder Pain with movement, fall 12 days ago COMPARISON: No comparisons available. Findings: No acute fracture or malalignment. No significant degenerative changes. Soft tissues unremarkable. Impression: No acute fracture or malalignment. EXAMINATION: XR wrist RT min 3V, 04/26/2025 17:51 CDT HISTORY: RT wrist pain, ulnar aspect, fall 12 days ago COMPARISON: No comparisons available. Findings: No acute fracture or malalignment. No significant degenerative changes. Soft tissues unremarkable. Impression: No acute fracture or malalignment. Critical Care Time Critical Care Time Critical Care Time: No Discharge Plan Discharge Clinical Impression: Acute pain of right wrist, Acute pain of left shoulder, Fall Patient Disposition: Home Condition: Stable Instructions: Wrist Injury (ED), Shoulder Pain (ED) Additional Instructions: Your Xray did not show a fracture. Ice should be applied to help reduce swelling. It can be used for 20 to 30 minutes, every 2-3 hours while awake. Do not apply ice directly to your skin. You can alternate ibuprofen 600mg and Tylenol 650mg every 4 hours as needed for pain Please schedule a follow-up visit with your personal physician for further evaluation and treatment within 2 weeks especially if symptoms persist. For new or worsening symptoms go directly to the emergency room Patient Language: Yakut Prescriptions: No Action Dupixent Pen 300 mg/2 mL pen injector 300 mg SUBCUT WEEKLY trazodone 50 mg tablet 50 mg PO HS atenolol 50 mg tablet 100 mg DAILY venlafaxine 75 mg capsule,extended release 24hr 75 mg PO DAILY levothyroxine 125 mcg tablet 125 mcg PO DAILY escitalopram oxalate 20 mg tablet 20 mg PO DAILY diazepam [Valium] 5 mg tablet 5 mg PO BID PRN (Reason: muscle spasm) Qty: 10 0RF albuterol sulfate 90 mcg/actuation HFA aerosol inhaler 2 puff inhalation QID PRN (Reason: shortness of breath or wheezing) Qty: 6.7 0RF (DME) Aerochamber MV Spacer See Rx Instructions .Route Qty: 1 0RF Rx Instructions: As directed Follow-up/Referrals: Elaine,Mark Adams MD [Primary Care Provider, Unknown] Stand Alone Forms: Work/School Release IP Time of Disposition: 18:28
== END 2025-04-26 18:35 | disposition home or self-care (01) ==
PROVIDERS: Emergency Provider Nurse Practitioner; PCP Family Medicine
DX: M25.512 Pain in left shoulder (principal); M25.531 Pain in right wrist; W07.XXXA Fall from chair, initial encounter; I10 Essential (primary) hypertension; E89.0 Postprocedural hypothyroidism; F41.9 Anxiety disorder, unspecified; F32.A Depression, unspecified
CPT/HCPCS: 73030; 73110; 99214; G0463